=== PATIENT | male | born 1935 | race Caucasian/White ===

== ENCOUNTER 2017-01-28 18:59 | Emergency (ER) | payer OTHER ==
[~2017-01-28] VITALS: Ht 162.6 cm; Wt 88.5 kg
[~2017-01-28 18:59] MED LIST: ENALAPRIL MALEA20 MG PO; HYDROCHLOROTHIA25 MG PO; LO-DOSE ASPIRIN81 M1 PO; LORATADINE10 M2 PO; SIMVASTATIN40 MG PO
[2017-01-28 20:25] LABS: HEMATOCRIT 44.1 % (38.0-50.0); MCH 27.2 PG (29.0-34.0); MCV 85.1 FL (86-99); MEAN PLAT.VOLUME 10.5 uM^3 (9.0-12.4); PLATELET COUNT 272 K/uL (156-360); RBC DIS.WIDTH-CV 14.9 % (11.8-14.6); RBC DIS.WIDTH-SD 45.9 % (39-53); RED BLOOD COUNT 5.18 M/uL (4.00-5.50); WHITE BLOOD COUNT 11.5 K/uL (4.1-10.2)
[2017-01-28 20:37] LABS: CHLORIDE 103 mEq/L (99-109); POTASSIUM 3.7 mEq/L (3.7-5.4); SODIUM 139 mEq/L (136-147)
[2017-01-28 20:39] LABS: GLUCOSE 114 mg/dL (70-99)
[2017-01-28 20:40] LABS: ANION GAP 10 MEQ/L (2-14)
[2017-01-28 20:42] LABS: GFR ESTIMATE (CALCULATED) > 59 mL/min/
[2017-01-28 20:43] LABS: UREA NITROGEN (BUN) 17 mg/dL (9-23)
[2017-01-28 21:17] LABS: ADD MIUA? YES; BILIRUBIN NEGATIVE; BLOOD NEGATIVE; COLOR YELLOW ((YELLOW)); GLUCOSE (STRIP) NEGATIVE; KETONES NEGATIVE; LEUKOCYTES NEGATIVE; NITRITE NEGATIVE; PROTEIN (STRIP) 100; SPECIFIC GRAVITY 1.023 (1.000-1.030); UROBILINOGEN 0.2 MG/DL (0.2-1.0)
[2017-01-28 21:36] LABS: BACTERIA NONE SEEN /HPF; EPITHELIAL CELLS RARE /HPF; MUCUS TRACE /LPF; UCUL ADDED? NO; WHITE BLOOD CELLS 0-5 /HPF (0-5)
[2017-01-28 22:23] VITALS: BP 148/81
== END 2017-01-28 22:23 | disposition home or self-care (01) ==
LOC: EME → EDBD 18:59 → EME 18:59
PROVIDERS: Emergency Medicine
DX: S40.012A Contusion of left shoulder, initial encounter (principal); R53.1 Weakness; W19.XXXA Unspecified fall, initial encounter; I10 Essential (primary) hypertension; E78.5 Hyperlipidemia, unspecified; Z79.82 Long term (current) use of aspirin; Z87.891 Personal history of nicotine dependence
CPT/HCPCS: 70450; 73030; 80048; 81003; 85027; 93005; 99281; 99284

== ENCOUNTER 2017-12-14 11:49 | Inpatient (IN) | payer OTHER ==
[~2017-12-14] VITALS: Ht 162.6 cm; Wt 88.2 kg
[~2017-12-14 11:49] MED LIST changes: +HYDROCHLOROTH12.5 M3 PO; -HYDROCHLOROTHIA25 MG PO
[2017-12-14 12:12] LABS: HEMOGLOBIN 14.2 G/DL (12.5-16.6); MCH 28.1 PG (29.0-34.0); MCHC 32.3 G/DL (30.0-36.0); PLATELET COUNT 283 K/uL (156-360); RBC DIS.WIDTH-CV 15.2 % (11.8-14.6); RBC DIS.WIDTH-SD 47.9 % (39-53); RED BLOOD COUNT 5.06 M/uL (4.00-5.50)
[2017-12-14 12:24] LABS: ALBUMIN 4.2 g/dL (3.2-4.8)
[2017-12-14 12:25] LABS: CHLORIDE 102 mEq/L (99-109); POTASSIUM 3.7 mEq/L (3.7-5.4); SODIUM 139 mEq/L (136-147)
[2017-12-14 12:27] LABS: GLUCOSE 125 mg/dL (70-99); TOTAL PROTEIN 7.7 g/dL (6.4-8.3)
[2017-12-14 12:29] LABS: TOTAL BILIRUBIN 0.7 mg/dL (0.0-1.0)
[2017-12-14 12:30] LABS: ALKALINE PHOSPHATASE 57 IU/L (3-129)
[2017-12-14 12:31] LABS: GFR ESTIMATE (CALCULATED) > 59 mL/min/ (58.99-99999)
[2017-12-14 12:32] LABS: AST (GOT) 16 IU/L (2-34); UREA NITROGEN (BUN) 17 mg/dL (9-23)
[2017-12-14 12:34] LABS: ALT (GPT) 11 IU/L (3-49)
[2017-12-14 13:09] LABS: ALBUMIN 4.2 g/dL (3.2-4.8); CHLORIDE 103 mEq/L (99-109); POTASSIUM 3.6 mEq/L (3.7-5.4); SODIUM 136 mEq/L (136-147)
[2017-12-14 13:12] LABS: GLUCOSE 124 mg/dL (70-99); TOTAL PROTEIN 7.7 g/dL (6.4-8.3)
[2017-12-14 13:14] LABS: TOTAL BILIRUBIN 0.7 mg/dL (0.0-1.0)
[2017-12-14 13:15] LABS: ALKALINE PHOSPHATASE 59 IU/L (3-129); CREATININE 0.8 mg/dL (0.6-1.3); GFR ESTIMATE (CALCULATED) > 59 mL/min/ (58.99-99999)
[2017-12-14 13:16] LABS: UREA NITROGEN (BUN) 17 mg/dL (9-23)
[2017-12-14 13:17] LABS: AST (GOT) 21 IU/L (2-34)
[2017-12-14 13:18] LABS: ALT (GPT) 11 IU/L (3-49)
[2017-12-14 13:19] LABS: LIPASE 14 U/L (1.0-51.0)
[2017-12-14 13:55] LABS: APPEARANCE CLEAR ((CLEAR)); BILIRUBIN NEGATIVE; BLOOD NEGATIVE; COLOR YELLOW ((YELLOW)); GLUCOSE (STRIP) NEGATIVE; KETONES 20; LEUKOCYTES NEGATIVE; NITRITE NEGATIVE; PROTEIN (STRIP) 100; SPECIFIC GRAVITY 1.048 (1.000-1.030); UROBILINOGEN 0.2 MG/DL (0.2-1.0)
[2017-12-14 14:00] LABS: BACTERIA NONE SEEN /HPF; EPITHELIAL CELLS NONE SEEN /HPF; MUCUS TRACE /LPF; RED BLOOD CELLS 0-5 /HPF (0-5); UCUL ADDED? NO; WHITE BLOOD CELLS 0-5 /HPF (0-5)
[2017-12-14 16:08] VITALS: BP 162/87
[2017-12-14 19:35] VITALS: BP 137/79
[2017-12-14 23:15] VITALS: BP 108/65
[2017-12-15 06:22] LABS: HEMATOCRIT 38.5 % (38.0-50.0); MCH 27.8 PG (29.0-34.0); MCHC 31.7 G/DL (30.0-36.0); MCV 87.7 FL (86-99); PLATELET COUNT 248 K/uL (156-360); RBC DIS.WIDTH-CV 15.3 % (11.8-14.6); RBC DIS.WIDTH-SD 48.9 % (39-53); RED BLOOD COUNT 4.39 M/uL (4.00-5.50); WHITE BLOOD COUNT 8.3 K/uL (4.1-10.2)
[2017-12-15 06:29] LABS: HEMOGLOBIN 12.2 G/DL (12.5-16.6)
[2017-12-15 06:37] LABS: CHLORIDE 105 MEQ/L (99-109); CREATININE 0.8 MG/DL (0.6-1.3); GFR ESTIMATE (CALCULATED) > 59 mL/min/ (58.99-99999); GLUCOSE 119 mg/dL (70-99); MAGNESIUM 1.7 mg/dl (1.3-2.7); PHOSPHORUS 2.8 mg/dL (2.5-4.9); POTASSIUM 3.8 MEQ/L (3.7-5.4); SODIUM 140 MEQ/L (136-147); UREA NITROGEN (BUN) 14 mg/dL (9-23)
[2017-12-15 07:00] VITALS: BP 160/90
[2017-12-15 13:17] VITALS: BP 129/76
[2017-12-15 15:45] VITALS: BP 135/74
[2017-12-15] MEDS ORDERED: FINASTERIDE5 MG PO (15:50)
[2017-12-15] MEDS ORDERED: TAMSULOSIN HCL0.4 MG PO (15:50)
[2017-12-15] MEDS ORDERED: VITAMIN D31000 UNI2 PO (15:52)
[2017-12-15] MEDS ORDERED: LIVER COMPLEX1 EACH PO (16:29)
[2017-12-15] MEDS ORDERED: PROSTATE HEALT1 EAC1 PO (16:31)
[2017-12-15] MEDS ORDERED: FISH OIL 1,2001 EAC4 PO (16:32)
[2017-12-15 20:42] VITALS: BP 141/82
[2017-12-15 23:20] VITALS: BP 136/66
[2017-12-16 04:21] VITALS: BP 120/61
[2017-12-16 06:54] VITALS: BP 143/75
[2017-12-16 11:00] VITALS: BP 141/78
== END 2017-12-16 14:00 | disposition home or self-care (01) | DRG 390 ==
LOC: EME 11:49 → 5EAST 14:46 → EDOF 14:46 → ENRESERV 14:47 → 5EAST 15:52 → ENPENDDIS 12-16 → 5EAST 12-16 14:00
PROVIDERS: Physician Assistant; Surgery
DX: K56.50 Intestinal adhesions [bands], unspecified as to partial versus complete obstruction (principal); N40.0 Benign prostatic hyperplasia without lower urinary tract symptoms; I10 Essential (primary) hypertension; E78.00 Pure hypercholesterolemia, unspecified; E66.9 Obesity, unspecified; G47.33 Obstructive sleep apnea (adult) (pediatric); K43.2 Incisional hernia without obstruction or gangrene; Z85.038 Personal history of other malignant neoplasm of large intestine; Z87.891 Personal history of nicotine dependence; Z90.49 Acquired absence of other specified parts of digestive tract
CPT/HCPCS: 71045; 74018; 74177; 80048; 80053; 81003; 83605; 83690; 83735; 84100; 85027; 99281; 99285; J1644; J2060; J2405; J3010; J7030; J7120; S0028